=== PATIENT | female | born 1950 | race African-American/Black ===

== ENCOUNTER 2017-06-12 14:00 | Outpatient (RCR) | payer MEDICARE, OTHER ==
[~2017-06-12 14:00] MED LIST: ALPRAZOLAM1 MG ORAL; ASPIR 8181 MG ORAL; ATIVAN0.5 MG ORAL; BENADRYL25 MG ORAL; EFFEXOR XR75 MG ORAL; HYDROCHLOROTHIA25 MG ORAL; KLONOPIN0.5 MG ORAL; LOPRESSOR HCT1 EAC3 ORAL; LOSARTAN POTASS50 MG ORAL; METOPROLOL TART25 MG ORAL; NORVASC10 MG ORAL; RESTORIL15 MG ORAL; RESTORIL7.5 MG ORAL; ZOLOFT25 MG ORAL; ZOLOFT50 MG ORAL; ZYPREXA2.5 MG ORAL; ZYPREXA5 MG ORAL
== END 2017-06-15 | disposition home or self-care (01) ==
LOC: MERGE 14:00 → PTY 14:00
DX: M16.0 Bilateral primary osteoarthritis of hip (principal); M54.9 Dorsalgia, unspecified
CPT/HCPCS: 97110; 97161; G8978; G8979

== ENCOUNTER 2017-06-24 13:45 | Outpatient (RCR) | payer MEDICARE, OTHER ==
[2017-07-03] MEDS ORDERED: ATIVAN0.5 MG ORAL (13:42)
== END 2017-07-16 | disposition home or self-care (01) ==
LOC: PTY 13:45
DX: M54.9 Dorsalgia, unspecified (principal); M16.0 Bilateral primary osteoarthritis of hip

== ENCOUNTER 2017-12-09 10:00 | Outpatient (RCR) | payer MEDICARE, MEDICAID | END 2017-12-13 | disposition home or self-care (01) | LOC: PTY 10:00 | DX: M16.12 Unilateral primary osteoarthritis, left hip (principal) | CPT/HCPCS: 97110; 97161; G8978; G8979 ==

== ENCOUNTER 2017-12-25 09:00 | Outpatient (RCR) | payer MEDICARE, MEDICAID | END 2018-01-13 | disposition home or self-care (01) | LOC: PTY 09:00 | DX: M16.12 Unilateral primary osteoarthritis, left hip (principal) ==

== ENCOUNTER 2018-01-20 09:00 | Outpatient (RCR) | payer MEDICARE, MEDICAID | END 2018-02-13 | disposition home or self-care (01) | LOC: PTY 09:00 | DX: M16.12 Unilateral primary osteoarthritis, left hip (principal) ==

== ENCOUNTER 2018-03-10 09:00 | Outpatient (RCR) | payer MEDICARE, MEDICAID | END 2018-03-15 | disposition home or self-care (01) | LOC: PTY 09:00 | DX: M16.12 Unilateral primary osteoarthritis, left hip (principal); M54.9 Dorsalgia, unspecified | CPT/HCPCS: 97110; G8978; G8979 ==

== ENCOUNTER 2018-03-19 09:05 | Outpatient (RCR) | payer MEDICARE, MEDICAID | END 2018-04-15 | disposition home or self-care (01) | LOC: PTY 09:05 | DX: M16.12 Unilateral primary osteoarthritis, left hip (principal); M54.9 Dorsalgia, unspecified ==